=== PATIENT | female | born 1945 | race Caucasian/White ===

== ENCOUNTER 2022-08-12 08:47 | Outpatient (CLI) | payer MEDICARE, OTHER, SELFPAY ==
[2022-08-12 12:41] LABS: Chloride* 103 mmol/L (96-114); Potassium* 4.8 mmol/L (3.6-5.1); Sodium* 139 mmol/L (135-149)
[2022-08-12 12:44] LABS: Blood Urea Nitrogen* 21 mg/dL (7-30); Carbon Dioxide* 25 mmol/L (20-32); Cholesterol* 171 mg/dL (90-199); Creatinine* 0.7 mg/dL (0.5-1.5); Estimated Glomerular Filt Rate 90 ml/min
[2022-08-12 12:45] LABS: Calcium* 9.9 mg/dL (8.4-10.6); Glucose* 108 mg/dL (60-115); HDL Cholesterol* 54 mg/dL (>=50); LDL Cholesterol Calculated 93 mg/dL (<100); Triglycerides* 120 mg/dL (40-149)
== END 2022-08-12 08:48 | disposition home or self-care (01) ==
PROVIDERS: PCP Family Medicine; Visit Provider Family Medicine
DX: Z00.00 Encounter for general adult medical examination without abnormal findings (principal); I10 Essential (primary) hypertension; E78.5 Hyperlipidemia, unspecified
CPT/HCPCS: 80048; 80061

== ENCOUNTER 2022-10-19 08:46 | Outpatient (CLI) | payer MEDICARE, OTHER, SELFPAY ==
--- NOTE | 2022-10-19 09:15 | CRLHL7_ITS ---
For Patients: As a result of the Cures Act, medical imaging exams and procedure reports are released immediately into your electronic medical record. You may view this report before your referring provider. If you have questions, please contact your health care provider. BILATERAL SCREENING MAMMOGRAM WITH COMPUTER-AIDED DETECTION AND TOMOSYNTHESIS TECHNIQUE: CC and MLO views were obtained. These mammographic images have been obtained using full-field digital technique. These mammographic images were interpreted with the benefit of computer-aided detection. Breast Tomosynthesis was used in this interpretation. COMPARISON FILM: 09/21/21, 09/18/20, 09/17/19. FINDINGS: The breasts are heterogeneously dense, which may obscure small masses. IMPRESSION: There is no radiographic evidence for malignancy. ASSESSMENT: BI-RADS Category 2: Benign RECOMMENDATION: Routine screening mammogram in 1 year. A lay language report of this examination will be provided to the patient. KAYLEE BUCKLEY M.D. Diagnostic/Nuclear Medicine Radiologist [email or web address] RADU:valentin Transcribed: 2:13 p.mRodrigo hanson/Dictated by: Kaylee Buckley MD @ 10/19/2022 9:47:00 AM (Electronically Signed)
== END 2022-10-19 08:47 | disposition home or self-care (01) ==
PROVIDERS: PCP Family Medicine; Visit Provider Family Medicine
DX: Z12.31 Encounter for screening mammogram for malignant neoplasm of breast (principal)
CPT/HCPCS: 77063; 77067

== ENCOUNTER 2023-09-18 10:46 | Outpatient (CLI) | payer MEDICARE, OTHER, SELFPAY | END 2023-09-18 10:47 | disposition home or self-care (01) | PROVIDERS: PCP Family Medicine; Visit Provider Family Medicine | DX: I10 Essential (primary) hypertension (principal); E78.5 Hyperlipidemia, unspecified; M81.0 Age-related osteoporosis without current pathological fracture; R53.83 Other fatigue; Z13.21 Encounter for screening for nutritional disorder | CPT/HCPCS: 80048; 80061; 82607; 84443 ==

== ENCOUNTER 2023-12-13 07:43 | Outpatient (CLI) | payer MEDICARE, OTHER, SELFPAY ==
--- NOTE | 2023-12-13 08:15 | CRLHL7_ITS ---
For Patients: As a result of the Century Cures Act, medical imaging exams and procedure reports are released immediately into your electronic medical record. You may view this report before your referring provider. If you have questions, please contact your health care provider. BILATERAL SCREENING MAMMOGRAM WITH COMPUTER-AIDED DETECTION AND TOMOSYNTHESIS TECHNIQUE: CC and MLO views were obtained. These mammographic images have been obtained using full-field digital technique. These mammographic images were interpreted with the benefit of computer-aided detection. Breast Tomosynthesis was used in this interpretation. COMPARISON FILM: 10/19/22, 09/27/21, 09/21/21. FINDINGS: The breasts are heterogeneously dense, which may obscure small masses. IMPRESSION: There is no radiographic evidence for malignancy. ASSESSMENT: BI-RADS Category 2: Benign RECOMMENDATION: Routine screening mammogram in 1 year. A lay language report of this examination will be provided to the patient. Sage Cantu M.D. Diagnostic Radiologist [email or web address] SP/Dictated by: Sage Cantu MD @ 12/13/2023 12:40:00 PM (Electronically Signed)
== END 2023-12-13 07:44 | disposition home or self-care (01) ==
LOC: MAMMO 07:44
PROVIDERS: PCP Family Medicine; Visit Provider Family Medicine
DX: Z12.31 Encounter for screening mammogram for malignant neoplasm of breast (principal); R92.2 Inconclusive mammogram
CPT/HCPCS: 77063; 77067

== ENCOUNTER 2024-09-10 08:05 | Outpatient (CLI) | payer MEDICARE, OTHER, SELFPAY | END 2024-09-10 08:06 | disposition home or self-care (01) | LOC: NFLDREF 09-12 11:48 | PROVIDERS: PCP Family Medicine; Referring Provider Family Medicine; Visit Provider Family Medicine | DX: I10 Essential (primary) hypertension (principal); E78.2 Mixed hyperlipidemia | CPT/HCPCS: 80048; 80061 ==

== ENCOUNTER 2024-10-08 13:32 | Outpatient (CLI) | payer MEDICARE, OTHER, SELFPAY ==
[2024-10-08] MEDS: PERFLUTREN LIPID MICROSPHERES 2 ML VIAL IVP (15:06)
[2024-10-08 15:36] VITALS: BP 148/78; RESP 16
--- NOTE | 2024-10-08 15:42 | W.PM.STED ---
Stress Test Note Date Date Seen: 10/08/24 Date of test: 10/08/24 Providers Primary care provider: Anil Meyers Stress test physician: Bobby Liao Stress Test Note Stress test ordered: Stress Echo Indication for test: Shortness of breath Stress test medicine: Definity Results discussion: This very pleasant the lady presents for the above test after discussion the risks benefits side effects she would like to proceed, cardiac stress test medical history report is filled in detail. And reviewed. Pretest EKG shows normal sinus rhythm, with a rate of 70, blood pressure 150 on 82, no acute ST wave changes are noted. Following standard Adi protocol patient is exercised for a total time of 6 minutes 57 seconds and achieved a metabolic equivalent of 8.3 Mets with a maximum heart rate of 142 this is 116% of the maximum. Test is terminated because of fulfillment of protocol, during this time she had no chest pain she did have some mild shortness of breath. Exercise tolerance is good. Review of the tracing there is no ST wave changes suggestive of ischemia Impression: This the stress test is negative electrographic Follow up suggested: Await cardiology's review of the echo portion, clinical correlation with this will be needed, patient left this testing facility in good condition there were no complications
== END 2024-10-08 15:38 | disposition home or self-care (01) ==
LOC: RAD 13:34
PROVIDERS: PCP Family Medicine; Visit Provider Family Medicine
DX: R06.09 Other forms of dyspnea (principal)
CPT/HCPCS: 93016; 93306; 93325; 93351; Q9957

== ENCOUNTER 2025-02-20 08:58 | Outpatient (CLI) | payer MEDICARE, OTHER, SELFPAY ==
--- NOTE | 2025-02-20 09:15 | CRLHL7_ITS ---
For Patients: As a result of the Century Cures Act, medical imaging exams and procedure reports are released immediately into your electronic medical record. You may view this report before your referring provider. If you have questions, please contact your health care provider. BILATERAL SCREENING MAMMOGRAM WITH COMPUTER-AIDED DETECTION AND TOMOSYNTHESIS TECHNIQUE: CC and MLO views were obtained. These mammographic images have been obtained using full-field digital technique. These mammographic images were interpreted with the benefit of computer-aided detection. Breast Tomosynthesis was used in this interpretation. COMPARISON FILM: 12/13/23, 10/19/22, 09/21/21. FINDINGS: The breasts are heterogeneously dense, which may obscure small masses. IMPRESSION: There is no radiographic evidence for malignancy. ASSESSMENT: BI-RADS Category 1: Negative RECOMMENDATION: Routine screening mammogram in 1 year. A lay language report of this examination will be provided to the patient. Sage Cantu M.D. Diagnostic Radiologist [email or web address] SP/Dictated by: Sage Cantu MD @ 02/21/2025 12:42:00 PM (Electronically Signed)
== END 2025-02-20 08:59 | disposition home or self-care (01) ==
LOC: MAMMO 09:00
PROVIDERS: PCP Family Medicine; Visit Provider Family Medicine
DX: Z12.31 Encounter for screening mammogram for malignant neoplasm of breast (principal); R92.333 Mammographic heterogeneous density, bilateral breasts
CPT/HCPCS: 77063; 77067

== ENCOUNTER 2025-09-30 08:51 | Outpatient (CLI) | payer MEDICARE, OTHER, SELFPAY | END 2025-09-30 08:52 | disposition home or self-care (01) | PROVIDERS: PCP Family Medicine; Visit Provider Family Medicine | DX: C50.912 Malignant neoplasm of unspecified site of left female breast (principal); E78.2 Mixed hyperlipidemia | CPT/HCPCS: 80053; 80061 ==